=== PATIENT | female | born 1955 | race Caucasian/White ===

== ENCOUNTER 2018-12-25 12:41 | Inpatient (IN) | payer OTHER ==
[~2018-12-25] VITALS: Ht 154.9 cm; Wt 39.5 kg
[2018-12-25 13:22] LABS: BASOPHILS ABSOLUTE AUTO 0.09 K/mm3 (0.00-0.23); BASOPHILS PERCENT AUTO 0 % (0-2); EOSINOPHILS ABSOLUTE AUTO 0.07 K/mm3 (0.00-0.68); EOSINOPHILS PERCENT AUTO 0 % (0-6); Hematocrit 35.5 % (33.0-51.0); Mean Corpuscular HGB 30.9 pg (26.0-34.0); Mean Corpuscular HGB Conc 33.8 g/dL (31.5-36.5); Mean Corpuscular Volume 92 fL (80-100); Mean Platelet Volume 9.4 fL (9.1-12.4); Platelet Count 482 K/mm3 (150-400); RDW Coefficient Variation 14.9 % (11.7-14.2); RDW Standard Deviation 50.2 fL (35.1-46.3); Red Blood Cell Count 3.88 M/mm3 (3.80-5.20); White Blood Cell Count 23.88 K/mm3 (4.00-11.30)
[2018-12-25 13:31] LABS: IMMATURE GRAN ABSOLUTE AUTO 0.29 K/mm3 (0.00-0.10); IMMATURE GRAN PERCENT AUTO 1 % (0-1); LYMPHOCYTES ABSOLUTE AUTO 2.52 K/mm3 (0.84-5.20); LYMPHOCYTES PERCENT AUTO 11 % (21-46); MONOCYTES ABSOLUTE AUTO 1.74 K/mm3 (0.16-1.47); MONOCYTES PERCENT AUTO 7 % (4-13); NEUTROPHILS ABSOLUTE AUTO 19.17 K/mm3 (1.96-9.15); NEUTROPHILS PERCENT AUTO 80 % (41-73)
[2018-12-25 13:33] LABS: Alanine Aminotransfer (ALT/SGP 19 U/L (12-78); Albumin, Blood 2.5 g/dL (3.4-5.0); Albumin/Globulin Ratio 0.5 (0.8-1.8); Alk Phos 117 U/L (50-136); Anion Gap 8 mmol/L (6-16); Aspartate Aminotrans (AST/SGOT 34 U/L (12-37); Bilirubin, Total 0.3 mg/dL (0.1-1.0); Blood Urea Nitrogen 22 mg/dL (8-24); CO2, Blood 28 mmol/L (21-32); Chloride, Blood 99 mmol/L (98-108); Creatinine, Blood 0.73 mg/dL (0.40-1.00); Globulin, Blood 4.9 g/dL (2.2-4.0); Glomerular Filtration Rate >60 (60-); Glucose, Blood 128 mg/dL (70-99); Potassium, Blood 3.6 mmol/L (3.5-5.5); Sodium, Blood 135 mmol/L (136-145); Total Protein, Blood 7.4 g/dL (6.4-8.2)
[2018-12-25] MEDS ORDERED: ALBU90OI61 INH (13:34)
[2018-12-25 16:00] LABS: Adenovirus Not Detected (NOT DETECT); Bordetella pertussis Not Detected (NOT DETECT); Chlamydophila pneumoniae Not Detected (NOT DETECT); Coronavirus 229E Not Detected (NOT DETECT); Coronavirus HKU1 Not Detected (NOT DETECT); Coronavirus NL63 Not Detected (NOT DETECT); Coronavirus OC43 Not Detected (NOT DETECT); Human Metapneumovirus Not Detected (NOT DETECT); Human Rhinovirus/Enterovirus Not Detected (NOT DETECT); Influenza A Not Detected (NOT DETECT); Influenza A/2009-H1 Not Detected (NOT DETECT); Influenza A/H1 Not Detected (NOT DETECT); Influenza A/H3 Not Detected (NOT DETECT); Influenza B Not Detected (NOT DETECT); Mycoplasma pneumoniae Not Detected (NOT DETECT); Parainfluenza Virus 1 Not Detected (NOT DETECT); Parainfluenza Virus 2 Not Detected (NOT DETECT); Parainfluenza Virus 3 Not Detected (NOT DETECT); Parainfluenza Virus 4 Not Detected (NOT DETECT); Respiratory Syncytial Virus Not Detected (NOT DETECT)
[2018-12-26 05:22] LABS: Hematocrit 33.2 % (33.0-51.0); Hemoglobin 10.7 g/dL (11.5-16.0); Mean Corpuscular HGB 30.1 pg (26.0-34.0); Mean Corpuscular HGB Conc 32.2 g/dL (31.5-36.5); Mean Corpuscular Volume 93 fL (80-100); Mean Platelet Volume 9.4 fL (9.1-12.4); Platelet Count 455 K/mm3 (150-400); RDW Coefficient Variation 15.1 % (11.7-14.2); RDW Standard Deviation 52.8 fL (35.1-46.3); Red Blood Cell Count 3.56 M/mm3 (3.80-5.20); White Blood Cell Count 13.86 K/mm3 (4.00-11.30)
[2018-12-26 05:38] LABS: Anion Gap 6 mmol/L (6-16); Blood Urea Nitrogen 12 mg/dL (8-24); Bun/Creatinine Ratio 20.9 (12.0-20.0); CO2, Blood 29 mmol/L (21-32); Calcium, Blood 8.1 mg/dL (8.5-10.1); Chloride, Blood 105 mmol/L (98-108); Creatinine, Blood 0.57 mg/dL (0.40-1.00); Glomerular Filtration Rate >60 (60-); Glucose, Blood 109 mg/dL (70-99); Potassium, Blood 3.4 mmol/L (3.5-5.5); Sodium, Blood 140 mmol/L (136-145)
--- NOTE | 2018-12-26 05:50 | NUR ---
SHIFT SUMMARY PT WAS ABLE TO SLEEP AFTER COUGH WAS TX PER EMAR. PT SLEPT WELL T/O SHIFT. PT HAD NO ISSUES OR COMPLAINTS. PT CURRENTLY AWAKE AND BREATHING EASY. CALL LIGHT IN REACH.
[2018-12-26] MEDS ORDERED: MUCUS ER1200 MG PO (13:23)
[2018-12-26] MEDS ORDERED: ASPI81CH PO (13:23)
[2018-12-26] MEDS ORDERED: PRED10 PO (13:25)
[2018-12-26] MEDS ORDERED: AZIT250 (13:27)
--- NOTE | 2018-12-26 13:57 | NUR ---
DISCHARGE SUMMARY PATIENT DISCHARGED WITH SIGNIFICANT OTHER BACK TO HER HOME. SHE HAD NO PCP IDENTIFIED. STATED SHE WANTED TO ESTABLISH WITH THE URGENT CARE PROVIDER THAT ACCEPTS PATIENTS NEAR [place] [place]. ENCOURAGED HER TO ESTABLISH WITH THIS PCP OR ANOTHER PCP DUE TO HER COPD DIAGNOSIS. PATIENT RECIEPTIVE BUT ALSO STATES SHE IS NOT OVER INTERESTED IN ESTABLISHING WITH A PCP AT THIS TIME DUE TO HER DISLIKE FOR TAKING ANY MEDICATION. ABLE MAKE HER NEEDS KNOWN. AMBULATED SELF OUT OF BUILDING.
== END 2018-12-26 13:54 | disposition home or self-care (01) | DRG 871 ==
LOC: ER 12:41 → MEDS 17:29
PROVIDERS: Emergency Medicine; Physician Assistant; ADMIT Hospitalist
DX: A41.9 Sepsis, unspecified organism (principal); J18.1 Lobar pneumonia, unspecified organism; J44.1 Chronic obstructive pulmonary disease with (acute) exacerbation; J44.0 Chronic obstructive pulmonary disease with (acute) lower respiratory infection; F17.210 Nicotine dependence, cigarettes, uncomplicated; R65.20 Severe sepsis without septic shock; J40 Bronchitis, not specified as acute or chronic; Z88.6 Allergy status to analgesic agent; Z88.5 Allergy status to narcotic agent; Z79.82 Long term (current) use of aspirin; Z79.51 Long term (current) use of inhaled steroids; Z79.899 Other long term (current) drug therapy
CPT/HCPCS: 36415; 71046; 80048; 80053; 83605; 83880; 85025; 85027; 87486; 87581; 87633; 87798; 93005; 93010; 94640; 96361; 96365; 96367; 99285-25; J0456; J0696; J1650; J3480; J7030; J7050; J7512

== ENCOUNTER 2020-10-06 13:49 | Emergency (ER) | payer OTHER ==
[~2020-10-06] VITALS: Ht 154.9 cm; Wt 40.8 kg
[~2020-10-06 13:49] MED LIST: ALBU90OI61 INH; ASPI81CH PO; AZIT250; MUCUS ER1200 MG PO; PRED10 PO
[2020-10-06 14:31] LABS: BASOPHILS ABSOLUTE AUTO 0.06 K/mm3 (0.00-0.23); BASOPHILS PERCENT AUTO 1 % (0-2); EOSINOPHILS ABSOLUTE AUTO 0.09 K/mm3 (0.00-0.68); EOSINOPHILS PERCENT AUTO 1 % (0-6); Hematocrit 42.6 % (33.0-51.0); Hemoglobin 14.5 g/dL (11.5-16.0); IMMATURE GRAN ABSOLUTE AUTO 0.02 K/mm3 (0.00-0.10); IMMATURE GRAN PERCENT AUTO 0 % (0-1); LYMPHOCYTES ABSOLUTE AUTO 1.86 K/mm3 (0.84-5.20); LYMPHOCYTES PERCENT AUTO 26 % (21-46); MONOCYTES ABSOLUTE AUTO 0.69 K/mm3 (0.16-1.47); MONOCYTES PERCENT AUTO 10 % (4-13); Mean Corpuscular HGB 30.8 pg (26.0-34.0); Mean Corpuscular Volume 90 fL (80-100); NEUTROPHILS ABSOLUTE AUTO 4.49 K/mm3 (1.96-9.15); NEUTROPHILS PERCENT AUTO 62 % (41-73); Platelet Count 327 K/mm3 (150-400); RDW Coefficient Variation 12.8 % (11.7-14.2); RDW Standard Deviation 42.7 fL (35.1-46.3); Red Blood Cell Count 4.71 M/mm3 (3.80-5.20); White Blood Cell Count 7.21 K/mm3 (4.00-11.30)
[2020-10-06 14:47] LABS: International Normalized Ratio 0.98; Prothrombin Time Results 10.5 Sec (9.7-11.5)
[2020-10-06 15:05] LABS: Alanine Aminotransfer (ALT/SGP 17 U/L (12-78); Albumin, Blood 3.9 g/dL (3.4-5.0); Albumin/Globulin Ratio 1.1 (0.8-1.8); Alk Phos 82 U/L (50-136); Anion Gap 4 mmol/L (6-16); Aspartate Aminotrans (AST/SGOT 21 U/L (12-37); Bilirubin, Total 0.8 mg/dL (0.1-1.0); Blood Urea Nitrogen 12 mg/dL (8-24); Bun/Creatinine Ratio 16.3 (12.0-20.0); CO2, Blood 30 mmol/L (21-32); Calcium, Blood 9.2 mg/dL (8.5-10.1); Chloride, Blood 104 mmol/L (98-108); Creatinine, Blood 0.74 mg/dL (0.40-1.00); Globulin, Blood 3.4 g/dL (2.2-4.0); Glomerular Filtration Rate >60 (60-); Glucose, Blood 113 mg/dL (70-99); Potassium, Blood 3.4 mmol/L (3.5-5.5); Sodium, Blood 138 mmol/L (136-145); Total Protein, Blood 7.3 g/dL (6.4-8.2)
[2020-10-06] MEDS ORDERED: METO25 PO (15:27)
[2020-10-06] MEDS ORDERED: CLOP75 PO (15:27)
[2020-10-06] MEDS ORDERED: ATOR40TA PO (15:27)
== END 2020-10-06 15:44 | disposition home or self-care (01) ==
LOC: ER 13:49
PROVIDERS: Physician Assistant
DX: I63.9 Cerebral infarction, unspecified (principal); R29.810 Facial weakness; J44.9 Chronic obstructive pulmonary disease, unspecified; F17.210 Nicotine dependence, cigarettes, uncomplicated; Z88.5 Allergy status to narcotic agent; Z79.899 Other long term (current) drug therapy; Z79.82 Long term (current) use of aspirin
CPT/HCPCS: 36415; 70450; 80053; 85025; 85610; 93005; 93010; 99284-25; A9270

== ENCOUNTER 2021-12-10 03:20 | Emergency (ER) | payer MEDICARE ==
[~2021-12-10] VITALS: Ht 154.9 cm; Wt 39.5 kg
[~2021-12-10 03:20] MED LIST changes: +ATOR40TA PO; +CLOP75 PO; +METO25 PO
[2021-12-10 04:52] LABS: Source, Urine Voided
[2021-12-10 04:56] LABS: BASOPHILS ABSOLUTE AUTO 0.05 K/mm3 (0.00-0.23); BASOPHILS PERCENT AUTO 1 % (0-2); EOSINOPHILS ABSOLUTE AUTO 0.21 K/mm3 (0.00-0.68); EOSINOPHILS PERCENT AUTO 3 % (0-6); Hemoglobin 14.7 g/dL (11.5-16.0); IMMATURE GRAN ABSOLUTE AUTO 0.03 K/mm3 (0.00-0.10); IMMATURE GRAN PERCENT AUTO 0 % (0-1); LYMPHOCYTES ABSOLUTE AUTO 1.84 K/mm3 (0.84-5.20); LYMPHOCYTES PERCENT AUTO 24 % (21-46); MONOCYTES ABSOLUTE AUTO 0.64 K/mm3 (0.16-1.47); MONOCYTES PERCENT AUTO 8 % (4-13); Mean Corpuscular HGB 30.5 pg (26.0-34.0); Mean Corpuscular HGB Conc 33.4 g/dL (31.5-36.5); Mean Corpuscular Volume 91 fL (80-100); Mean Platelet Volume 8.4 fL (9.1-12.4); NEUTROPHILS PERCENT AUTO 64 % (41-73); Platelet Count 512 K/mm3 (150-400); RDW Coefficient Variation 12.1 % (11.7-14.2); RDW Standard Deviation 40.8 fL (35.1-46.3); Red Blood Cell Count 4.82 M/mm3 (3.80-5.20); White Blood Cell Count 7.77 K/mm3 (4.00-11.30)
[2021-12-10 05:11] LABS: Appearance, Urine Clear (Clear); Bilirubin, Urine Neg (Neg); Blood, Urine 1+ (Neg); Color, Urine Yellow (P-Yellow); Glucose Qualitative, Urine Neg (Neg); Ketones, Urine 1+ (Neg); Leukocyte Esterase, Urine Neg (Neg); Nitrite, Urine Neg (Neg); Protein, Urine Neg (Neg); Specific Gravity, Urine 1.015 (1.003-1.022); Urobilinogen, Urine NORM (Normal)
[2021-12-10 05:25] LABS: Bacteria Rare /hpf; Red Blood Cells, Urine 0-2 /hpf (0-2); Squamous Epithelial Cells Rare /hpf (Few); White Blood Cells, Urine 0-2 /hpf (0-5)
[2021-12-10 05:32] LABS: Alanine Aminotransfer (ALT/SGP 17 U/L (12-78); Albumin, Blood 3.8 g/dL (3.4-5.0); Albumin/Globulin Ratio 0.8 (0.8-1.8); Alk Phos 76 U/L (50-136); Anion Gap 5 mmol/L (6-16); Aspartate Aminotrans (AST/SGOT 14 U/L (12-37); Bilirubin, Total 0.3 mg/dL (0.1-1.0); Blood Urea Nitrogen 12 mg/dL (8-24); Bun/Creatinine Ratio 18.3 (12.0-20.0); CO2, Blood 30 mmol/L (21-32); Calcium, Blood 9.3 mg/dL (8.5-10.1); Chloride, Blood 102 mmol/L (98-108); Creatinine, Blood 0.65 mg/dL (0.40-1.00); Globulin, Blood 4.5 g/dL (2.2-4.0); Glomerular Filtration Rate >60 (60-); Glucose, Blood 115 mg/dL (70-99); Potassium, Blood 3.7 mmol/L (3.5-5.5); Sodium, Blood 137 mmol/L (136-145); Total Protein, Blood 8.3 g/dL (6.4-8.2)
== END 2021-12-10 06:34 | disposition home or self-care (01) ==
LOC: ER 03:20
PROVIDERS: Student in an Organized Health Care Education/Training Program
DX: M54.50 Low back pain, unspecified (principal); Z88.5 Allergy status to narcotic agent; Z79.82 Long term (current) use of aspirin; J44.9 Chronic obstructive pulmonary disease, unspecified; F17.210 Nicotine dependence, cigarettes, uncomplicated
CPT/HCPCS: 36415; 80053; 81001; 85025; 96374; 99283-25; A9270; J1885

== ENCOUNTER 2022-01-20 13:36 | Emergency (ER) | payer MEDICARE ==
[~2022-01-20] VITALS: Ht 154.9 cm; Wt 43.1 kg
[2022-01-20 14:50] LABS: BASOPHILS ABSOLUTE AUTO 0.07 K/mm3 (0.00-0.23); BASOPHILS PERCENT AUTO 0 % (0-2); EOSINOPHILS ABSOLUTE AUTO 0.02 K/mm3 (0.00-0.68); EOSINOPHILS PERCENT AUTO 0 % (0-6); Hematocrit 38.4 % (33.0-51.0); IMMATURE GRAN ABSOLUTE AUTO 0.08 K/mm3 (0.00-0.10); IMMATURE GRAN PERCENT AUTO 1 % (0-1); LYMPHOCYTES ABSOLUTE AUTO 1.77 K/mm3 (0.84-5.20); LYMPHOCYTES PERCENT AUTO 11 % (21-46); MONOCYTES ABSOLUTE AUTO 1.02 K/mm3 (0.16-1.47); MONOCYTES PERCENT AUTO 6 % (4-13); Mean Corpuscular HGB Conc 33.9 g/dL (31.5-36.5); Mean Corpuscular Volume 89 fL (80-100); Mean Platelet Volume 9.1 fL (9.1-12.4); NEUTROPHILS ABSOLUTE AUTO 12.88 K/mm3 (1.96-9.15); NEUTROPHILS PERCENT AUTO 81 % (41-73); Platelet Count 517 K/mm3 (150-400); RDW Coefficient Variation 13.6 % (11.7-14.2); RDW Standard Deviation 44.8 fL (35.1-46.3); Red Blood Cell Count 4.33 M/mm3 (3.80-5.20); White Blood Cell Count 15.84 K/mm3 (4.00-11.30)
[2022-01-20 15:08] LABS: Albumin, Blood 2.8 g/dL (3.4-5.0); Albumin/Globulin Ratio 0.6 (0.8-1.8); Bilirubin, Total 0.4 mg/dL (0.1-1.0); Bun/Creatinine Ratio 20.1 (12.0-20.0); Calcium, Blood 9.3 mg/dL (8.5-10.1); Creatinine, Blood 0.6 mg/dL (0.40-1.00); Potassium, Blood 3.8 mmol/L (3.5-5.5); Total Protein, Blood 7.8 g/dL (6.4-8.2)
[2022-01-20 15:22] LABS: SARS-Cov-2 (COVID-19) PCR, MMC NEGATIVE (NEGATIVE)
== END 2022-01-20 20:37 | disposition left against medical advice (07) ==
LOC: ER 13:36
PROVIDERS: Physician Assistant
DX: J44.9 Chronic obstructive pulmonary disease, unspecified (principal); R50.9 Fever, unspecified; R07.9 Chest pain, unspecified; Z79.82 Long term (current) use of aspirin; Z79.899 Other long term (current) drug therapy; Z20.822 Contact with and (suspected) exposure to COVID-19
CPT/HCPCS: 36415; 71046; 80053; 84484; 85025; 93005; 93010; A9270; U0004

== ENCOUNTER 2023-07-27 18:48 | Observation (INO) | payer MEDICARE ==
[~2023-07-27] VITALS: Ht 154.9 cm; Wt 62.1 kg
[~2023-07-27 18:48] MED LIST changes: +ALBU90OI INH; +AZIT250 PO; +PRED20 PO
[2023-07-27 20:01] LABS: BASOPHILS ABSOLUTE AUTO 0.06 K/mm3 (0.00-0.23); BASOPHILS PERCENT AUTO 1 % (0-2); EOSINOPHILS ABSOLUTE AUTO 0.07 K/mm3 (0.00-0.68); EOSINOPHILS PERCENT AUTO 1 % (0-6); Hemoglobin 13.9 g/dL (11.5-16.0); IMMATURE GRAN ABSOLUTE AUTO 0.03 K/mm3 (0.00-0.10); IMMATURE GRAN PERCENT AUTO 0 % (0-1); LYMPHOCYTES ABSOLUTE AUTO 1.49 K/mm3 (0.84-5.20); LYMPHOCYTES PERCENT AUTO 14 % (21-46); MONOCYTES ABSOLUTE AUTO 0.67 K/mm3 (0.16-1.47); MONOCYTES PERCENT AUTO 6 % (4-13); Mean Corpuscular HGB 30.8 pg (26.0-34.0); Mean Corpuscular HGB Conc 33.9 g/dL (31.5-36.5); Mean Corpuscular Volume 91 fL (80-100); Mean Platelet Volume 8.5 fL (9.1-12.4); NEUTROPHILS ABSOLUTE AUTO 8.13 K/mm3 (1.96-9.15); NEUTROPHILS PERCENT AUTO 78 % (41-73); Platelet Count 364 K/mm3 (150-400); RDW Standard Deviation 43.2 fL (35.1-46.3); Red Blood Cell Count 4.52 M/mm3 (3.80-5.20); White Blood Cell Count 10.45 K/mm3 (4.00-11.30)
[2023-07-27 20:29] LABS: Albumin, Blood 3.8 g/dL (3.4-5.0); Bilirubin, Total 0.4 mg/dL (0.1-1.0); Bun/Creatinine Ratio 18.3 (12.0-20.0); Calcium, Blood 8.8 mg/dL (8.5-10.1); Creatinine, Blood 0.6 mg/dL (0.40-1.00); Globulin, Blood 3.8 g/dL (2.2-4.0); Potassium, Blood 3.4 mmol/L (3.5-5.5); Total Protein, Blood 7.6 g/dL (6.4-8.2)
[2023-07-27 22:05] LABS: Source, Urine Clean Catch
[2023-07-27 22:12] LABS: Bilirubin, Urine Neg (Neg); Blood, Urine Neg (Neg); Glucose Qualitative, Urine Neg (Neg); Ketones, Urine Neg (Neg); Leukocyte Esterase, Urine Neg (Neg); Nitrite, Urine Neg (Neg); Protein, Urine 1+ (Neg); Specific Gravity, Urine 1.015 (1.003-1.022); Urobilinogen, Urine NORM (Normal)
[2023-07-27 22:30] LABS: Appearance, Urine Clear (Clear); Color, Urine Pale Yellow (P-Yellow)
[2023-07-28] VITALS (10 sets, daily range): BP systolic 145–192; BP diastolic 72–108
[2023-07-28 05:21] LABS: BASOPHILS ABSOLUTE AUTO 0.04 K/mm3 (0.00-0.23); BASOPHILS PERCENT AUTO 0 % (0-2); EOSINOPHILS ABSOLUTE AUTO 0.01 K/mm3 (0.00-0.68); EOSINOPHILS PERCENT AUTO 0 % (0-6); Hemoglobin 14.2 g/dL (11.5-16.0); IMMATURE GRAN ABSOLUTE AUTO 0.02 K/mm3 (0.00-0.10); IMMATURE GRAN PERCENT AUTO 0 % (0-1); LYMPHOCYTES ABSOLUTE AUTO 1.84 K/mm3 (0.84-5.20); LYMPHOCYTES PERCENT AUTO 19 % (21-46); MONOCYTES ABSOLUTE AUTO 0.98 K/mm3 (0.16-1.47); MONOCYTES PERCENT AUTO 10 % (4-13); Mean Corpuscular HGB Conc 33.8 g/dL (31.5-36.5); Mean Corpuscular Volume 89 fL (80-100); Mean Platelet Volume 8.7 fL (9.1-12.4); NEUTROPHILS ABSOLUTE AUTO 6.95 K/mm3 (1.96-9.15); NEUTROPHILS PERCENT AUTO 71 % (41-73); Platelet Count 395 K/mm3 (150-400); RDW Coefficient Variation 12.8 % (11.7-14.2); RDW Standard Deviation 41.9 fL (35.1-46.3); Red Blood Cell Count 4.73 M/mm3 (3.80-5.20); White Blood Cell Count 9.84 K/mm3 (4.00-11.30)
[2023-07-28 05:49] LABS: Albumin, Blood 3.7 g/dL (3.4-5.0); Albumin/Globulin Ratio 1.1 (0.8-1.8); Bilirubin, Total 0.8 mg/dL (0.1-1.0); Bun/Creatinine Ratio 20.1 (12.0-20.0); Calcium, Blood 8.8 mg/dL (8.5-10.1); Creatinine, Blood 0.7 mg/dL (0.40-1.00); Globulin, Blood 3.5 g/dL (2.2-4.0); Potassium, Blood 3.7 mmol/L (3.5-5.5); Total Protein, Blood 7.2 g/dL (6.4-8.2)
--- NOTE | 2023-07-28 06:15 | NUR ---
SHIFT SUMMARY/ADMISSION NOTE PATIENT ARRIVED TO UNIT FROM ED AT 03:05. ORIENTED TO UNIT, ROOM AND CALL LIGHT USE. IS A/OX4, C/O WORSENING LEFT FLANK/ABD PAIN PAST 2 DAYS, MEDICATED IN ED. DENIES CURRENT PAIN/DISCOMFORT. IS NPO FOR NEPHROSTOMY TUBE PLACEMENT IN AM, DUE TO OBSTRUCTION. STATES UNABLE TO SEE IN RIGHT EYE, LIGHT/SHADOWS ONLY. RIGHT EYE IS CLOUDY AND BLOOD SHOOT, RECENT OCCURRENCE. ATTEMPTED TO SEEK HELP AT URGENT CARE, WAS TOLD TO F/U WITH [employer]ER, NO F/U AT THIS TIME. NO ACUTE CHANGES NOTED SINCE ADMIT. BED LOCKED, CALL LIGHT IN REACH.
--- NOTE | 2023-07-28 13:41 | NUR ---
HYPERTENSION PT HYPERTENSIVE TODAY. DR. BARNETT NOTIFIED AND HYDRALAZINE AND NORVASC STARTED. IV ASSESS LOST, SO NO HYDRALAZINE WAS GIVEN. BP INCREASED AFTER NORVASC. DR. BARNETT NOTIFIED OF THIS AT 1343. NEW ORDERS TO BE PLACED. ORDER OKAT TO LEAVE OUT IV RECIEVED PATIENT IS REFUSING A NEW IV AT THIS TIME.
--- NOTE | 2023-07-28 17:19 | NUR ---
SHIFT SUMMARY PT HAD NEPHROSTOMY PLACED TO L FLANK TODAY. DENIES PAIN SINCE IT WAS PLACED. OUTPUT FROM TUBE IS RED IN COLOR. PUTTING OUT WELL. PT HAS URGE TO URINATE, BUT NO URINE IS IN BLADDER WITH BLADDER SCAN. DR. BARNETT NOTIFIED OF THIS. HTN T/O SHIFT, ESPECIALLY AFTER PROCEDURE. SEE EMAR FOR MEDICATIONS ADDED TO REGIMEN. ORDER FOR NO IV NEEDED OBTAINED TODAY AFTER OLD IV STARTED LEAKING. APPOINTMENT MADE FOR JASSI TO FOLLOW UP WITH OPHTHALMOLOGY THIS THURSDAY. DISCHARGE PLANNING WORKING ON GETTING PT ESTABLISHED WITH PCP FOR HOME HEALTH TO BE SET UP FOR DRESSING CHANGES WEEKLY TO NEPHROSTOMY TUBE.
--- NOTE | 2023-07-29 04:24 | NUR ---
SHIFT SUMMARY PATIENT HAD NO ACUTE CHANGES. AXOX 4 AND INDEPENDENT IN ROOM. LEFT NEPHROSTOMY TUBE INTACT AND DRAINING. NO IV ACCESS. DENIES CHEST PAIN, SOB, AND N/V. VSS/AFEBRILE. REPORTED LEFT FLANK PAIN X ONE AND TYLENOL 650 MG GIVEN PER EMAR. LAID ON RIGHT SIDE FOR PAIN MANAGEMENT. SLEPT OR DID BOOK GAMES. CALL LIGHT IN REACH. BED IN LOWEST POSITION. WILL CONTINUE TO MONITOR UNTIL DAY SHIFT NURSE ASSUMES CARE.
[2023-07-29 04:53] VITALS: BP 143/79
[2023-07-29 07:31] VITALS: BP 163/87
[2023-07-29] MEDS ORDERED: ACET325 PO (11:03)
[2023-07-29] MEDS ORDERED: AMLO10 PO (11:04)
[2023-07-29] MEDS ORDERED: LISI20 PO (11:04)
[2023-07-29] MEDS ORDERED: THERA-D2000 UNIT PO (11:09)
--- NOTE | 2023-07-29 11:45 | NUR ---
DISCHARGE INSTRUCTIONS COMPLETED AND DISCUSSED WITH PT AND SHE EXPRESSED UNDERSTANDING. DEMONSTRATED ABILITY TO EMPTY NEPHROSTOMY TUBE AND KEEP IT STABLE. SCRIPTS FAXED TO [employer]. TO [facility] VIA W/C WITH SON.
== END 2023-07-29 11:45 | disposition home or self-care (01) ==
LOC: ER 18:48 → MEDS 18:49 → ER 07-28 02:49 → MEDS 07-28 02:49
PROVIDERS: Student in an Organized Health Care Education/Training Program; ADMIT Internal Medicine
DX: N13.0 Hydronephrosis with ureteropelvic junction obstruction (principal); J44.9 Chronic obstructive pulmonary disease, unspecified; Z79.899 Other long term (current) drug therapy; Z88.5 Allergy status to narcotic agent
CPT/HCPCS: 36415; 50695; 74177; 76937; 80053; 82306; 83690; 85025; 94760; 96374; 96375; 99152; 99153; 99285-25; A9270; C1729; C1769; C1894; C2617; G0378; J1885; J2250; J2405; J3010; J3480; J7030; J7040; J7050; Q9967

== ENCOUNTER 2023-08-13 07:08 | Day surgery (SDC) | payer MEDICARE ==
[~2023-08-13] VITALS: Ht 154.9 cm; Wt 38.6 kg
[~2023-08-13 07:08] MED LIST changes: +ACET325 PO; +AMLO10 PO; +LISI20 PO; +THERA-D2000 UNIT PO
[2023-08-13 07:33] VITALS: BP 149/82
[2023-08-13 07:37] VITALS: BP 149/82
[2023-08-13 09:10] VITALS: BP 167/92
[2023-08-13 09:15] VITALS: BP 163/92
[2023-08-13 09:30] VITALS: BP 160/79
--- NOTE | 2023-08-13 09:56 | NUR ---
PT GIVEN DC INSTRUCTIONS AND VERBALIZED UNDERSTANDING. IV OUT. PT CHNAGED. SITE SOFT AND NON-TENDER. NO BLEEDING NOTED. PT REPORTS RELIEF IN BACK AND L SIDE PAIN. PT AMBULATED TO [facility] WHERE SON WAS WAITING TO GIVE PT RIDE HOME.
== END 2023-08-13 10:13 | disposition home or self-care (01) ==
LOC: MHTC 07:08
DX: Z43.6 Encounter for attention to other artificial openings of urinary tract (principal); J44.9 Chronic obstructive pulmonary disease, unspecified; F17.210 Nicotine dependence, cigarettes, uncomplicated; M89.8X5 Other specified disorders of bone, thigh; Z88.5 Allergy status to narcotic agent; Z79.82 Long term (current) use of aspirin; Z79.899 Other long term (current) drug therapy
CPT/HCPCS: 50389; C1769; J7050; Q9967

== ENCOUNTER → 2025-03-23 | Outpatient (CLI) | payer MEDICARE | LOC: LAB 11:13 → LAB SHORT 11:13 | DX: R31.0 Gross hematuria (principal) | CPT/HCPCS: 87086 ==

== ENCOUNTER 2025-06-27 06:44 | Day surgery (SDC) | payer MEDICARE ==
[~2025-06-27] VITALS: Ht 157.5 cm; Wt 38.6 kg
[2025-06-27] MEDS ORDERED: CeFAZolin Sodium 2,000 MG VIAL ONE (07:26)
[2025-06-27] MEDS ORDERED: LOSA50 PO (07:47)
[2025-06-27] MEDS ORDERED: Flonase 0.05% N16 GM (07:48)
[2025-06-27] MEDS ORDERED: MULTIVITAMIN (07:49)
[2025-06-27] MEDS ORDERED: FentaNYL Citrate 50 MCG/ML 2 ML Injection ONE (08:16)
[2025-06-27] MEDS ORDERED: Lidocaine 2% Jelly Uro-Jet ONE (08:20)
--- NOTE | 2025-06-27 08:26 | NUR ---
06/27/25 0826 Alise Martinez 0818: RN NOTIFIED DR RODRIGUEZ THAT PATIENT LUNGS WERE CLEAR BUT VERY DIMINISHED THROUGHOUT, NO WHEEZES OR ANYTHING ABNORMAL NOTED. ALSO THAT PATIENT REPORTS "BACTERIAL INFECTION IN LUNGS" BUT STATES SHE WAS NOT PUT ON ANY ANITBIOTICS OR ANYTHING BUT THAT SHE HAD AN ENTIRE WORK-UP DONE BUT SHE DOES NOT KNOW WHAT THE OUTCOME WAS. NOTES ON CHART CT OF CHEST FROM 05-24-25 STATES "MAY REFLECT AN ATYPICAL MYCOBACTERIAL INFECTION". PER DR RODRIGUEZ OF ANESTHESIA NO NEW ORDERS. PULSE OXIMETER NOTES 98%. DR RODRIGUEZ ALSO NOTIFIED THAT PATIENT USES OXYGEN PRN FOR SHORTNESS OF BREATH BUT WAS NOT TOLD BY A DR TO USE OXYGEN, IT IS THE OXYGEN OF HER WHO PASSED AND SHE DOES NOT KNOW THE LPM.
[2025-06-27] MEDS ORDERED: Dexamethasone Sod Phos 10 MG/ML 1ML VIAL ONE (08:38)
[2025-06-27] MEDS ORDERED: Ondansetron HCl 2 MG / ML 2ML Vial ONE (08:38)
--- NOTE | 2025-06-27 08:49 | NUR ---
06/27/25 0849 Robert Mccullough ISOVUE 300 DILUTED 1:1 WITH NORMAL SALINE FOR PROCEDURE.
[2025-06-27 09:42] VITALS: BP 146/74
--- NOTE | 2025-06-27 10:33 | NUR ---
06/27/[address] CONSULTED REGARDING PT'S LUNG SOUNDS. HE ORDERED BREATHING TREATMENT ONLY IF PT WANTS IT. PT REFUSED BREATHING TREATMENT.
== END 2025-06-27 10:25 | disposition home or self-care (01) ==
LOC: ORSCSDS 06:44
PROVIDERS: Urology
PROC: 0T7D8DZ Dilation of Urethra with Intraluminal Device, Via Natural or Artificial Opening Endoscopic (ICD-10-PCS; principal; 2025-06-27 08:30)
PROC: 0TJB8ZZ Inspection of Bladder, Via Natural or Artificial Opening Endoscopic (ICD-10-PCS; principal; 2025-06-27 08:30)
PROC: 0TPD8DZ Removal of Intraluminal Device from Urethra, Via Natural or Artificial Opening Endoscopic (ICD-10-PCS; principal; 2025-06-27 08:30)
PROC: BT1FZZZ Fluoroscopy of Left Kidney, Ureter and Bladder (ICD-10-PCS; principal; 2025-06-27 08:30)
DX: N13.5 Crossing vessel and stricture of ureter without hydronephrosis (principal); R31.0 Gross hematuria; T83.098A Other mechanical complication of other urinary catheter, initial encounter; I10 Essential (primary) hypertension; J44.9 Chronic obstructive pulmonary disease, unspecified; Z79.82 Long term (current) use of aspirin; Z79.899 Other long term (current) drug therapy
CPT/HCPCS: 82947; 88300; C1758; C1769; C2617; J0690; J1100; J2405; J2704; J3010; J7120

== ENCOUNTER → 2025-07-12 | Outpatient (CLI) | payer MEDICARE ==
[~2025-07-12] MED LIST changes: +Flonase 0.05% N16 GM; +LOSA50 PO; +MULTIVITAMIN
== END | disposition home or self-care (01) ==
LOC: LAB SHORT 14:54 → LAB 14:54 → LAB FUT 06-21 15:55 → EDSTATUS 06-21 15:55
DX: A31.0 Pulmonary mycobacterial infection (principal)
CPT/HCPCS: 87116